=== PATIENT | male | born 1940 | race Caucasian/White ===

== ENCOUNTER → 2020-12-25 | Day surgery (SDC) | payer MEDICARE, OTHER ==
[~2020-12-25] MED LIST: ALFUZOSIN HCL E10 MG PO; ASPIR 8181 MG PO; ASPIRIN CHEWABL81 MG PO; BACLOFEN 10MG T10 MG PO; CALCIUM + D3 E1 EACH PO; FEOSOL325 MG PO; FOLIC ACID1 MG PO; IRBESARTAN150 MG PO; IRBESARTAN75 MG PO; NEPHRO-VITE RX1 EACH PO; OXYCODONE-ACET1 EAC1 PO; PANTOPRAZOLE SO40 MG PO; PERCOCET 7.5/321 TAB PO; XARELTO10 MG PO; XARELTO20 MG PO
[2020-12-25 09:27] LABS: HCT 42.1 % (42.0-52.0); HGB 14.1 g/dl (13.2-18.0); MCH 31.8 pg (25.0-31.0); MCHC 33.5 g/dL (32.0-36.0); MPV 10.9 fL (6.0-9.5); RBC 4.43 M/uL (4.70-6.00); RDW 14.3 % (11.5-14.0)
[2020-12-25 09:38] LABS: ALBUMIN 3.8 g/dL (3.4-5.0); BILIRUBIN - TOTAL 0.7 mg/dL (0.2-1.0); BUN/CREAT RATIO (CALC) 22.6 RATIO; CREATININE 0.93 mg/dL (0.67-1.17); GLOBULIN (CALCULATION) 2.6 g/dL; POTASSIUM 4.1 mmol/L (3.5-5.1); TOTAL PROTEIN 6.4 g/dL (6.4-8.2)
== END | disposition home or self-care (01) ==
LOC: FAS 08:02
PROVIDERS: Surgery
DX: K21.00 Gastro-esophageal reflux disease with esophagitis, without bleeding (principal); K29.70 Gastritis, unspecified, without bleeding; K29.80 Duodenitis without bleeding; M19.90 Unspecified osteoarthritis, unspecified site; I10 Essential (primary) hypertension; G47.30 Sleep apnea, unspecified; Z88.8 Allergy status to other drugs, medicaments and biological substances; Z20.822 Contact with and (suspected) exposure to COVID-19; Z98.1 Arthrodesis status; Z96.659 Presence of unspecified artificial knee joint; Z82.49 Family history of ischemic heart disease and other diseases of the circulatory system; Z87.891 Personal history of nicotine dependence
CPT/HCPCS: 36415; 80053; 88305; J2704; J7120

== ENCOUNTER → 2022-03-13 | Day surgery (SDC) | payer MEDICARE, OTHER ==
[~2022-03-13] VITALS: Ht 170.2 cm; Wt 79.0 kg
[~2022-03-13] MED LIST changes: +OMEPRAZOLE40 MG PO
[2022-03-13 08:52] LABS: HCT 43.9 % (42.0-52.0); HGB 14.9 g/dl (13.2-18.0); MCH 32.5 pg (25.0-31.0); MCHC 33.9 g/dL (32.0-36.0); MCV 95.9 fL (78.0-100.0); MPV 10.2 fL (6.0-9.5); RBC 4.58 M/uL (4.70-6.00); WBC 5.5 K/uL (4.0-10.5)
[2022-03-13 09:10] LABS: ALBUMIN 3.9 g/dL (3.4-5.0); BILIRUBIN - TOTAL 0.9 mg/dL (0.2-1.0); BUN/CREAT RATIO (CALC) 18.9 RATIO; CREATININE 1.06 mg/dL (0.67-1.17); GLOBULIN (CALCULATION) 2.8 g/dL; POTASSIUM 3.9 mmol/L (3.5-5.1); TOTAL PROTEIN 6.7 g/dL (6.4-8.2)
== END | disposition home or self-care (01) ==
LOC: FAS 08:19
PROVIDERS: Surgery
DX: K57.30 Diverticulosis of large intestine without perforation or abscess without bleeding (principal); I10 Essential (primary) hypertension; K21.9 Gastro-esophageal reflux disease without esophagitis; E78.00 Pure hypercholesterolemia, unspecified
CPT/HCPCS: 36415; 76705; 80053; J2250; J2704; J7120

== ENCOUNTER → 2022-04-17 | Day surgery (SDC) | payer MEDICARE, OTHER ==
[~2022-04-17] VITALS: Ht 170.2 cm; Wt 79.0 kg
[~2022-04-17] MED LIST changes: +NORCO 5-325 TA1 EACH PO; +ONDANSETRON ODT8 MG PO
[2022-04-17 10:23] LABS: HCT 41.8 % (42.0-52.0); HGB 14.1 g/dl (13.2-18.0); MCH 32.3 pg (25.0-31.0); MCHC 33.7 g/dL (32.0-36.0); MCV 95.7 fL (78.0-100.0); MPV 10.6 fL (6.0-9.5); RBC 4.37 M/uL (4.70-6.00); RDW 13.4 % (11.5-14.0); WBC 5.3 K/uL (4.0-10.5)
[2022-04-17 11:02] LABS: ALBUMIN 3.7 g/dL (3.4-5.0); BILIRUBIN - TOTAL 0.8 mg/dL (0.2-1.0); CREATININE 1.09 mg/dL (0.67-1.17); GLOBULIN (CALCULATION) 2.9 g/dL; POTASSIUM 4.1 mmol/L (3.5-5.1); TOTAL PROTEIN 6.6 g/dL (6.4-8.2)
== END | disposition home or self-care (01) ==
LOC: FAS 09:29
PROVIDERS: Surgery
DX: K80.10 Calculus of gallbladder with chronic cholecystitis without obstruction (principal); E78.5 Hyperlipidemia, unspecified; I10 Essential (primary) hypertension; G47.30 Sleep apnea, unspecified; N40.0 Benign prostatic hyperplasia without lower urinary tract symptoms; Z88.8 Allergy status to other drugs, medicaments and biological substances; Z79.82 Long term (current) use of aspirin; Z79.899 Other long term (current) drug therapy
CPT/HCPCS: 36415; 74300; 80053; J1100; J1170; J2250; J2405; J2704; J3010; J7120; Q9967